=== PATIENT | female | born 1980 | race Caucasian/White ===

== ENCOUNTER → 2017-03-04 | Outpatient (CLI) | payer BC, OTHER ==
[~2017-03-04] MED LIST: CARVEDILOL25 MG PO; HYDROCHLOROTHIA25 M1 PO
[2017-03-04 12:41] LABS: BASO % 0.5 % (0.0-1.0); EOS # 0.3 10*3/uL (0.0-0.4); EOS % 3.4 % (1.0-4.0); HEMOGLOBIN 13.7 g/dl (12.0-16.0); LYMPH # 2.3 10*3/uL (1.3-4.4); LYMPH % 29.3 % (27.0-41.0); MEAN CELL VOLUME 91.3 fl (81.0-99.0); MEAN CORPUSCULAR HGB 30.5 pg (27.0-31.0); MEAN CORPUSCULAR HGB CONC 33.4 g/dl (33.0-37.0); MEAN PLATELET VOLUME 9.6 fl (9.6-12.3); MONO # 0.7 10*3/uL (0.1-1.0); MONO % 8.5 % (3.0-9.0); NEUT # 4.5 10*3/uL (2.3-7.9); PLATELET COUNT AUTOMATED 245 10*3/uL (130-400); RED BLOOD COUNT 4.49 10*6/uL (4.10-5.10); RED CELL DISTRI WIDTH 12.9 % (0-14.5); WHITE BLOOD COUNT 7.7 10*3/uL (4.8-10.8)
== END | disposition home or self-care (01) ==
LOC: LAB 10:17
PROVIDERS: Obstetrics & Gynecology
DX: Z01.818 Encounter for other preprocedural examination (principal); N92.1 Excessive and frequent menstruation with irregular cycle

== ENCOUNTER → 2017-03-11 | Day surgery (SDC) | payer BC, OTHER ==
[~2017-03-11] VITALS: Ht 167.6 cm; Wt 70.3 kg
[~2017-03-11] MED LIST changes: +PERCOCET 325 MG1 TA2 PO
--- NOTE | ~2017-03-11 | O ---
[place], [place] OPERATIVE NOTE NAME: ERIN LOGAN UNIT #: [id number] ROOM: DOCTOR: WINNIE ROBERTS MD BIRTHDATE: [birth year] DOS: 03/11/2017 PREOPERATIVE DIAGNOSES: 1. Desires fertility determination. 2. Worsening hypermenorrhea and sometimes polymenorrhea and unable to treat with more conservative methods due to her hypertension. 3. IUD in place, ParaGard. 4. Recent Pap smear indicating high-grade squamous intraepithelial lesion but endocervical curettage and colposcopy in the office were negative. Due to that discrepancy, a cold knife conization was recommended. POSTOPERATIVE DIAGNOSES: 1. Desires fertility determination. 2. Worsening hypermenorrhea and sometimes polymenorrhea and unable to treat with more conservative methods due to her hypertension. 3. IUD in place, ParaGard. 4. Recent Pap smear indicating high-grade squamous intraepithelial lesion but endocervical curettage and colposcopy in the office were negative. Due to that discrepancy, a cold knife conization was recommended. OPERATION: Entailed: 1. Laparoscopic bilateral salpingectomy. 2. Paragard IUD removal. 3. Hysteroscopy. 4. D and C. 5. NovaSure endometrial ablation. 6. Cold knife conization of the ectocervix. SURGEON: Winnie Roberts M.D. and Dr. López ANESTHETIC: General. ESTIMATED BLOOD LOSS: Really less than 20 mL. REPLACEMENTS: IV fluids and Toradol. COMPLICATIONS: There were no complications. CONDITION: The patient's condition to recovery stable. OPERATIVE SUMMARY: The patient was taken to the operating room in supine position, general anesthesia, endotracheal intubation, lithotomy position, prepped and draped and a straight drained the bladder. We placed a cervical manipulator into the cervix after we had removed the ParaGard IUD and we identified the ParaGard IUD to each member of the staff that was in the room. We then placed her cervical manipulator and attached it to the tenaculum we had already placed. Attention was turned to the abdomen where an infraumbilical, suprapubic and right lower quadrant incisions were made. The patient then through the infraumbilical incision, had a 5 mm trocar sleeve and laparoscope [place], [place] OPERATIVE NOTE NAME: ERIN LOGAN UNIT #: [id number] ROOM: DOCTOR: WINNIE ROBERTS MD BIRTHDATE: [birth year] placed. Insufflation with CO2 was undertaken followed by placement of an 8 mm trocar and sleeve through the suprapubic incision and another 5 mm trocar and sleeve through the right lower quadrant incision. Examination of the pelvis revealed the uterus to be symmetric, mobile, overall normal in size and configuration. The anterior and posterior cul-de-sacs were normal. All supporting structures were normal. The ovaries were normal. The fallopian tubes were normal as well. The appendix was easily visualized and normal. The patient had minimal right mid anterior pericolonic fat adhesions, the etiology of which was unknown. The liver was identified easily, but the gallbladder was obscured. There were no other atypicalities in the upper abdomen or in the lower abdomen from the other organ standpoint. Once the survey was completed, we introduced a LigaSure device and removed each fallopian tube without complication. Good hemostasis was noted bilaterally. All these activities were photographed. Once this was completed and again noting good hemostasis, 2 lower abdominal trocar sleeves were removed and noting no significant anterior abdominal bleeding, CO2 was allowed to escape, followed by removal of the infraumbilical trocar sleeve and laparoscope. Each incision was closed with subcuticular 3-0 Monocryl suture. Steri-Strips and dressings placed. Turning our attention vaginally, we removed the cervical manipulator, sounded the uterus to almost 9 cm, progressively dilated the cervix and performed a thorough hysteroscopic exam of the intrauterine cavity revealing the fundus, cornual region, body of the uterus, all to be grossly within normal limits. The lower uterine segment also was normal. A thorough curettage was performed along with stone forceps followed by placement of our NovaSure device. After achieving the appropriate depth and width, we performed the NovaSure ablation without complication. The device was removed and repeat hysteroscopy revealed an excellent global endometrial ablation and no other atypicalities. The hysteroscope was then removed. We then injected the cervix in a circumferential manner with 1% lidocaine with epinephrine 5 mL total. We placed sutures at 3 and 9 o'clock [id number] #1 chromic sutures. We then removed cone shaped portion of the ectocervix. Once that was completed, we then utilized Sturmdorf sutures at 6 and 12 o'clock with good hemostasis noted. In the remainder of the cervical defect, we placed a piece of Surgicel dipped in Monsel's solution. Again, good hemostasis was noted. All instrumentation was removed from the vagina. The patient was cleaned off, taken out of lithotomy position, awakened, extubated, and transferred to recovery in satisfactory condition having had clear and adequate urine output, stable sponge and instrument counts, stable vital signs and good hemostasis. [place], [place] OPERATIVE NOTE NAME: DESMONDERIN ACCFanny #: [id number] UNIT #: [id number] ROOM: DOCTOR: WINNIE ROBERTS MD BIRTHDATE: [birth year] WINNIE ROBERTS MD CM:OPRECORD:OPERATIVE NOTE [id number] KELVIN ROBERTS MD 03/11/17 1313 interface
--- NOTE | ~2017-03-11 | WRIGHTHP ---
[place], [place] PATIENT HISTORY AND PHYSICAL EXAM NAME: ERIN LOGAN UNIT #: [id number] ROOM: DOCTOR: WINNIE ZHANG MD BIRTHDATE: [birth year] DOS: DATE OF ANTICIPATED SURGERY: 03/11/2017 HISTORY OF PRESENT ILLNESS: This is a very pleasant 36-year-old white female, 3, para 3, AB 0, who presented on 02/26/2017 with 3 distinct issues. The first is she desires fertility termination and we did review the risks and benefits, indications, potential complications and alternatives of this, understanding was stated and she signed a consent in that regard. The patient, for her second issue, was doing well with her control pill in regard no way to control but in terms of controlling her menses, but then she was diagnosed with hypertension and the pill was discontinued. A ParaGard IUD had been inserted, but the patient had significant variability in her menses and frequency and flow and the patient's states that he can actually feel the IUD with intercourse. The patient wanted the IUD out anyway and wanted an alternative to the erratic and heavy bleeding, and therefore, we discussed hysteroscopy, D and C and NovaSure endometrial ablation to again pluses and minuses which she acknowledges and signed a consent in that regard. Her third issue had to do with Pap smear. The patient had a cold knife conization in 2001 for LETICIA 3. She then had 3 vaginal deliveries, normal Pap smears 12, 13 and 14, but her most recent Pap cannot rule out high grade SATURNINO. She underwent a colposcopy in the office in mid January. The ECC was negative. The colposcopy itself was negative and high risk HPV were all negative, but this Pap still looms over us in terms of the degree of abnormality. To that end, we talked about since we were going to be performing these other procedures that we would conclude our surgery with a small cold knife conization of the ectocervix. The risks and benefits of this were also reviewed and understanding stated. She agreed to this portion also on the consent. One might ask instead of doing all these procedures why not just perform hysterectomy and the patient and I actually did entertain that, but because of her busy lifestyle and some other issues going on, she did not want to have an extended recovery if possible. To that end, we have scheduled for her on 03/11 laparoscopic bilateral salpingectomy, hysteroscopy, D and C and NovaSure and finally cold knife conization of the ectocervix. PAST MEDICAL HISTORY: Hypertension and a history of the abnormal Paps. The patient has had 3 pregnancies and 3 vaginal deliveries. She has had hernia repair, cold knife conization of the ectocervix and lung surgery. SOCIAL HISTORY: The patient does not smoke. She does not drink. ALLERGIES: She has no known allergies. MEDICATIONS: She takes hydrochlorothiazide 25 mg daily for hypertension as well as Coreg 25 mg b.i.d. for hypertension. [place], [place] PATIENT HISTORY AND PHYSICAL EXAM NAME: ERIN LOGAN UNIT #: [id number] ROOM: DOCTOR: WINNIE ZHANG MD BIRTHDATE: [birth year] REVIEW OF SYSTEMS: Stable. FAMILY HISTORY: Reveals her father and mother with hypertension. She has a paternal grandfather from heart attack. Paternal grandmother with hypertension and maternal grandfather from cancer of a questionable type. Maternal grandmother is . She also had hypertension. PHYSICAL EXAMINATION: GENERAL: A pleasant white female, in no significant distress. HEENT: Stable. NECK: Stable. LUNGS: Stable. CARDIAC: Stable. BREAST: Stable. VITAL SIGNS: She is 5 feet 6 inches, weighs 154 pounds, BMI is 24.85, blood pressure is 114/68. ABDOMEN: Normal. EXTREMITIES: Normal. NEUROLOGIC: Normal. GENITOURINARY: External genitalia, vagina are normal. Cervix as noted above and grossly appears to be normal. Uterus is anteverted and anteflexed, otherwise normal in size, configuration, nontender, mobile. The adnexa were negative. RECTAL: Negative and stool Hematest negative. Adnexa also were negative to palpation. ASSESSMENT: A patient with a multitude of issues, one is desires fertility termination, two has dysfunctional uterine bleeding and hypermenorrhea that had been well controlled with control pill, but now she cannot take this due to hypertension and ParaGard was not beneficial and therefore the patient will undergo hysteroscopy, D and C and NovaSure ablation and finally the patient has a history of LETICIA 3 a number of years ago, but her most recent Pap suggests that one cannot rule out high-grade SATURNINO and neither the colposcopy and ECC were negative. To that end, the patient will undergo a cold knife conization of the ectocervix at the conclusion of the other procedures in this case. [place], [place] PATIENT HISTORY AND PHYSICAL EXAM NAME: ERIN LOGAN UNIT #: [id number] ROOM: DOCTOR: WINNIE ZHANG MD BIRTHDATE: [birth year] WINNIE ZHANG MD CM:HISPHYS:PATIENT HISTORY AND PHYSICAL EXAMINATION [id number] KELVIN ZHANG MD 03/05/17 2243 interface
[2017-03-11 07:35] VITALS: BP 135/91
[2017-03-11 09:47] VITALS: BP 118/66
[2017-03-11 10:02] VITALS: BP 119/78
[2017-03-11 10:17] VITALS: BP 134/91
[2017-03-11 10:32] VITALS: BP 141/91
[2017-03-11 10:47] VITALS: BP 140/91
== END | disposition home or self-care (01) ==
LOC: SDC 03-04 10:15
DX: Z30.2 Encounter for sterilization (principal); R87.613 High grade squamous intraepithelial lesion on cytologic smear of cervix (HGSIL); N92.0 Excessive and frequent menstruation with regular cycle; Z30.432 Encounter for removal of intrauterine contraceptive device; I10 Essential (primary) hypertension; Z98.890 Other specified postprocedural states; I89.0 Lymphedema, not elsewhere classified; Z82.49 Family history of ischemic heart disease and other diseases of the circulatory system; Z79.899 Other long term (current) drug therapy

== ENCOUNTER → 2018-03-05 | Outpatient (CLI) | payer BC ==
[~2018-03-05] MED LIST changes: +VIBRAMYCIN100 MG PO
[2018-03-05 12:26] LABS: HEMATOCRIT 45.8 % (37.0-47.0); HEMOGLOBIN 15.3 g/dl (12.0-16.0); MEAN CELL VOLUME 92.7 fl (81.0-99.0); MEAN CORPUSCULAR HGB CONC 33.4 g/dl (33.0-37.0); MEAN PLATELET VOLUME 9.1 fl (9.6-12.3); RED BLOOD COUNT 4.94 10*6/uL (4.10-5.10); RED CELL DISTRI WIDTH 12.4 % (0-14.5); WHITE BLOOD COUNT 7.1 10*3/uL (4.8-10.8)
[2018-03-05 15:12] LABS: ALBUMIN 4.4 gm/dl (3.1-4.5); ALKALINE PHOSPHATASE 66 U/L (45-117); BUN 4 mg/dl (7-24); CHLORIDE 102 mmol/L (98-107); CHOLESTEROL 136 mg/dL (<200); CREATININE 0.69 mg/dL (0.55-1.02); HDL CHOLESTEROL 55 mg/dl (40-60); LDL CHOLESTEROL 59 mg/dL (9-159); POTASSIUM 3.9 mmol/L (3.5-5.1); SGOT/AST 15 IU/L (3-35); SGPT/ALT 14 U/L (12-78); SODIUM 138 mmol/L (136-145); TOTAL PROTEIN 7.7 gm/dL (6.4-8.2); TRIGLYCERIDES 108 mg/dl (<150); VLDL CHOLESTEROL 22 mg/dL (6-40)
== END | disposition home or self-care (01) ==
LOC: LAB 12:01
PROVIDERS: Family Medicine
DX: E55.9 Vitamin D deficiency, unspecified (principal); E74.9 Disorder of carbohydrate metabolism, unspecified; I10 Essential (primary) hypertension; E78.00 Pure hypercholesterolemia, unspecified; L68.0 Hirsutism

== ENCOUNTER 2018-04-05 19:20 | Emergency (ER) | payer BC ==
[~2018-04-05] VITALS: Wt 70.3 kg
[~2018-04-05 19:20] MED LIST changes: -VIBRAMYCIN100 MG PO
[2018-04-05] MEDS ORDERED: VIBRAMYCIN100 MG PO (19:31)
== END 2018-04-05 20:29 | disposition home or self-care (01) ==
LOC: ED 19:20
DX: R21 Rash and other nonspecific skin eruption (principal); R03.0 Elevated blood-pressure reading, without diagnosis of hypertension; Z79.899 Other long term (current) drug therapy

== ENCOUNTER → 2018-04-07 | Outpatient (CLI) | payer BC ==
[~2018-04-07] MED LIST changes: +VIBRAMYCIN100 MG PO
== END | disposition home or self-care (01) ==
LOC: LAB 14:57
PROVIDERS: Family Medicine
DX: I10 Essential (primary) hypertension (principal); L98.9 Disorder of the skin and subcutaneous tissue, unspecified

== ENCOUNTER → 2019-03-31 | Outpatient (CLI) | payer BC | END | disposition home or self-care (01) | LOC: US 09:36 | DX: E28.1 Androgen excess (principal) ==

== ENCOUNTER → 2024-02-10 | Outpatient (CLI) | payer BC | END | disposition home or self-care (01) | LOC: MAMMO 13:44 | PROVIDERS: ATTEND Family Medicine | DX: Z12.31 Encounter for screening mammogram for malignant neoplasm of breast (principal); R92.30 Dense breasts, unspecified ==

== ENCOUNTER → 2024-03-03 | Outpatient (CLI) | payer BC | END | disposition home or self-care (01) | LOC: US 10:30 | PROVIDERS: ATTEND Family Medicine | DX: R92.2 Inconclusive mammogram (principal); R92.333 Mammographic heterogeneous density, bilateral breasts ==

== ENCOUNTER 2024-04-23 11:25 | Emergency (ER) | payer BC ==
[~2024-04-23] VITALS: Ht 167.6 cm; Wt 79.4 kg
[2024-04-23] MEDS ORDERED: LISINOPRIL10 M1 PO (11:45)
[2024-04-23 12:54] LABS: BASO # 0.1 10*3/uL (0.0-0.1); BASO % 0.6 % (0.0-1.0); EOS # 0.1 10*3/uL (0.0-0.4); EOS % 0.7 % (1.0-4.0); HEMATOCRIT 44.8 % (37.0-47.0); LYMPH # 1.9 10*3/uL (1.3-4.4); MEAN CELL VOLUME 88.7 fl (81.0-99.0); MEAN CORPUSCULAR HGB 30.1 pg (27.0-31.0); MEAN CORPUSCULAR HGB CONC 33.9 g/dl (33.0-37.0); MEAN PLATELET VOLUME 8.6 fl (9.6-12.3); MONO # 0.7 10*3/uL (0.1-1.0); MONO % 6.5 % (3.0-9.0); NEUT # 7.6 10*3/uL (2.3-7.9); NEUT % 73.7 % (47.0-73.0); PLATELET COUNT AUTOMATED 338 10*3/uL (130-400); RED BLOOD COUNT 5.05 10*6/uL (4.10-5.10); RED CELL DISTRI WIDTH 12.7 % (0-14.5); WHITE BLOOD COUNT 10.3 10*3/uL (4.8-10.8)
[2024-04-23 13:07] LABS: ACT PARTIAL THROMBO TIME 32.5 SECONDS (20.0-32.1)
[2024-04-23 13:12] LABS: ALKALINE PHOSPHATASE 70 U/L (46-116); BUN 5 mg/dl (9-23); CHLORIDE 105 mmol/L (98-107); POTASSIUM 3.9 mmol/L (3.4-5.1); SGPT/ALT 19 U/L (5-49); TOTAL PROTEIN 7.7 gm/dL (6.0-8.0)
[2024-04-23 13:13] LABS: ETHYL ALCOHOL < 3.0 mg/dl (<3)
[2024-04-23 13:23] LABS: URINE AMPHETAMINES Negative (1000ng/ml); URINE BARBITURATES Negative (200ng/ml); URINE BENZODIAZEPINES Negative (200ng/ml); URINE CANNABINOIDS (THC) Negative (50ng/ml); URINE COCAINE Negative (300ng/ml); URINE METHADONE Negative (300ng/ml); URINE OPIATES Negative (300ng/ml); URINE PHENCYCLIDINE Negative (25ng/ml)
[2024-04-23 13:24] LABS: BILIRUBIN Negative (Negative); BLOOD Negative (Negative); CLARITY Clear (Clear); COLOR Yellow (Yellow); GLUCOSE Negative (Negative); KETONE Negative (Negative); LEUKO ESTERASE Negative (Negative); NITRITE Negative (Negative); PH 7.5 (4.5-8.0); SPECIFIC GRAVITY <= 1.005 (1.001-1.030); UROBILINOGEN 0.2 E.U./dl (0.0-1.0)
[2024-04-23] MEDS ORDERED: cloNIDine Hydrochloride 0.1 MG TAB PO ONE (14:40)
[2024-04-23] MEDS ORDERED: LISINOPRIL20 MG PO (15:45)
[2024-04-23] MEDS ORDERED: VISTARIL25 M2 PO (15:45)
== END 2024-04-23 16:02 | disposition home or self-care (01) ==
LOC: ED 11:25
PROVIDERS: Internal Medicine
DX: I10 Essential (primary) hypertension (principal); Z79.899 Other long term (current) drug therapy